=== PATIENT | female | born 1965 | race Hispanic/Latino ===

== ENCOUNTER 2018-04-26 08:11 | Outpatient (CLI) | payer BC ==
--- NOTE | 2018-04-26 09:01 | XRay Report ---
RIGHT ELBOW THREE VIEWS: 04/26/18 08:11:00 CLINICAL: Right elbow pain. FINDINGS: No fracture or dislocation. Osteoarthritis of the ulnohumeral joint with small osteophytes. The radiohumeral joint is normal. No joint effusion. Normal soft tissues. IMPRESSION: Mild ulnohumeral joint osteoarthritis.
== END 2018-04-26 08:12 | disposition home or self-care (01) ==
LOC: SPVIMAG 08:11
PROVIDERS: ATTEND Orthopaedic Surgery
DX: M19.021 Primary osteoarthritis, right elbow (principal)